=== PATIENT | male | born 2000 | race Caucasian/White ===

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

== ENCOUNTER 2022-08-01 18:59 | Emergency (ER) | payer BC, SELFPAY ==
[2022-08-01 19:07] VITALS: O2SAT 97
[2022-08-01] MEDS ORDERED: Lactated Ringers 500 ML IV ONE ×2 (19:29→19:45)
[2022-08-01] MEDS ORDERED: MORPHINE SULFATE 2 MG INJ IV ONE (19:29)
[2022-08-01] MEDS ORDERED: MORPHINE SULFATE 2 MG INJ ONE (19:38)
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
[2022-08-01 19:56] LABS: BASOPHIL % 0.5 % (0.0-0.4); Basophil (Absolute #) 0.04 x10^3/uL (0-0.4); Eosinophil % 1.4 % (0.00-5.0); Eosinophil (Absolute #) 0.11 x10^3/uL (0-0.5); Hematocrit 43.9 % (42-50); Hemoglobin 14.4 g/dL (12.5-18.0); IMMATURE GRAN # 0.02 x10^3u/L (0.00-0.03); IMMATURE GRAN % 0.2 % (0.00-0.4); Lymphocyte (Absolute #) 2.28 x10^3/uL (1.0-4.6); Lymphocytes % 28.4 % (24.0-44.0); Mean Cell Volume 83.9 fL (78-100); Mean Corpuscular Hemoglobin 27.5 pg (26-32); Mean Corpuscular Hgb Concent. 32.8 g/dL (32-36); Mean Platelet Volume 9.5 fL (7.5-11.0); Monocyte (Absolute #) 0.68 x10^3/uL (0.0-1.3); Monocytes % 8.5 % (0.0-12.0); Platelet Count 335 x10^3/uL (150-450); Red Blood Count 5.23 x10^6/uL (4.1-5.6); Red Cell Distribution Width 12.5 % (11.5-14.0)
[2022-08-01 20:09] LABS: ANION GAP 15.4 MEQ/L (5-15); BLOOD UREA NITROGEN 16 mg/dL (9-20); CHLORIDE 104 mmol/L (98-107); Calcium 9.1 mg/dL (8.4-10.2); Carbon Dioxide 25 mmol/L (22-30); Creatinine 1 1.02 mg/dL (0.66-1.25); EST GLOMERULAR FILTRATION RATE > 60.0 ML/MIN; Glucose 117 mg/dL (74-106); Potassium 3.5 mmol/L (3.5-5.1); SODIUM 141 mmol/L (137-145)
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
[2022-08-01 21:08] VITALS: BP 106/64; PULSE 99
== END 2022-08-01 21:34 | disposition home or self-care (01) ==
LOC: ED 18:59
DX: Z04.1 Encounter for examination and observation following transport accident (principal); R51.9 Headache, unspecified; Z28.310 Unvaccinated for COVID-19
CPT/HCPCS: 36000; 36415; 70450; 72125; 80048; 85025; 93005; 96374; 99285; J2270